=== PATIENT | female | born 1965 | race Caucasian/White ===

== ENCOUNTER 2020-01-26 18:44 | Inpatient (IN) | payer BC, OTHER ==
[~2020-01-26] VITALS: Ht 157.5 cm; Wt 60.0 kg
[2020-01-26 20:49] LABS: Basophils # (auto) 0.1 10 ^3/uL (0-0.2); Basophils % (auto) 1.2 % (0.0-2.0); Eosinophils # (auto) 0.2 10 ^3/uL (0-0.8); Eosinophils % (auto) 3.1 % (0.0-7.0); Hematocrit 43.2 % (36.0-46.0); Hemoglobin 14.3 g/dL (12.2-16.2); Lymphocytes % (auto) 13.6 % (10.0-50.0); Mean Corpuscular Hemoglobin 32.8 pg (28.0-32.0); Mean Corpuscular Hgb Conc. 33.2 g/dL (32.0-36.0); Mean Corpuscular Volume 98.7 fL (80.0-100.0); Monocytes # (auto) 0.6 10 ^3/uL (0-1.3); Monocytes % (auto) 7.9 % (0.0-12.0); Neutrophils # (auto) 5.4 10 ^3/uL (1.6-8.6); Neutrophils % (auto) 74.2 % (37.0-80.0); Platelet Count (auto) 264 10^3/uL (140-450); Red Blood Cells 4.38 10^6/uL (4.0-5.20); Red Cell Distribution Width 13.7 % (11.8-14.3); White Blood Cell 7.2 10^3/uL (4.4-10.8)
[2020-01-26 20:57] LABS: INR 1.03 (0.9-1.15); Partial Thromboplastin Time 27.3 sec (23.0-31.2)
[2020-01-26 21:02] LABS: Alanine Aminotransferase 23 U/L (13-56); Albumin 4.5 g/dL (3.4-5.0); Anion Gap 6 (5-15); Calcium 8.8 mg/dL (8.5-10.1); Carbon Dioxide 26 mmol/L (21-32); Chloride 110 mmol/L (98-107); Glucose 91 mg/dL (74-106); Potassium 3.4 mmol/L (3.5-5.1); Sodium 142 mmol/L (136-145)
[2020-01-26 21:07] LABS: Alkaline Phosphatase 72 U/L (45-117); Aspartate Aminotransferase 18 U/L (15-37); Bilirubin, Total 0.4 mg/dL (0.2-1.0); GFR African American 138 mL/min; GFR Non-African American 114 mL/min
[2020-01-26 21:41] LABS: BUN/Creatinine Ratio 20.7; Blood Urea Nitrogen 12 mg/dL (7-18)
[2020-01-26] MEDS ORDERED: dilTIAZem 25 MG/5 ML VIAL IV ONE (22:30)
[2020-01-26] MEDS ORDERED: dilTIAZem HCL 60 MG TAB PO ONE (23:30)
[2020-01-27] MEDS ORDERED: TEMAZEPAM 15 MG CAP PO PRN (00:30)
[2020-01-27] MEDS ORDERED: NITROGLYCERIN 0.4 MG SL TAB SL PRN (00:30)
[2020-01-27] MEDS ORDERED: ACETAMINOPHEN 325 MG TAB PO PRN (00:30)
[2020-01-27] MEDS ORDERED: MORPHINE SULF INJ 2 MG/ML SYRINGE 1ML IV PRN (00:30)
[2020-01-27] MEDS ORDERED: ONDANSETRON HCL 4 MG/2 ML VIAL IV PRN (00:30)
--- NOTE | 2020-01-27 01:35 | NUR ---
Telemetry admit from ER MALAIKA FORTE admitted to Telemetry unit after SBAR received. Patient oriented to Supriya Cross primary RN, unit, room, bed, and unit policies regarding patient care and visiting hours. Patient now on continuous telemetry monitoring, tele box # [id number] and telemetry reading on arrival to unit is sinus rhythm. Patient weighed by bedscale and encouraged to call if they need something. All questions and concerns addressed, patient verbalized understanding.
[2020-01-27] MEDS ORDERED: LEVO50TA7 PO (02:08)
[2020-01-27 04:51] VITALS: BP 106/58
[2020-01-27] MEDS ORDERED: ALPRAZolam 0.25 MG TAB PO ONE (06:45)
[2020-01-27] MEDS ORDERED: LEVOTHYROXINE SODIUM 25 MCG TAB PO SCH (07:00)
[2020-01-27 08:00] VITALS: BP 112/54
[2020-01-27 09:00] VITALS: BP 112/54
[2020-01-27] MEDS ORDERED: FAMOTIDINE 20 MG TAB PO SCH (10:00)
[2020-01-27] MEDS ORDERED: METOPROLOL TARTRATE 25 MG TAB PO SCH (10:00)
[2020-01-27] MEDS ORDERED: ENOXAPARIN SOD 40 MG/0.4 ML SYRINGE SC SCH (10:00)
[2020-01-27] MEDS ORDERED: POTASSIUM EFFERVESENT TAB 25 MEQ PO ONE (10:45)
[2020-01-27] MEDS ORDERED: ALPRAZolam 0.25 MG TAB PO PRN (11:30)
[2020-01-27 12:33] LABS: Urine Bacteria NONE SEEN /hpf (None Seen); Urine Blood Negative /uL (Negative); Urine Mucus FEW (None Seen); Urine Specific Gravity 1.018 (1.001-1.035); Urine WBC <1 /hpf (0 - 5)
[2020-01-27 13:00] VITALS: BP 122/73
[2020-01-27 17:00] VITALS: BP 119/66
--- NOTE | 2020-01-27 19:20 | NUR ---
Opening Shift Note Received report from Lindsay JENKINS. Assumed care of patient, awake and alert. No S/S of distress/SOB or pain. Instructed on POC and to call for assist PRN, will continue to monitor for changes Q1hr and PRN.
--- NOTE | 2020-01-27 19:42 | NUR ---
AMA Note MALAIKA FORTE states they want to leave the hospital Against Medical Advice (AMA). Patient encouraged to stay for further treatment/stabilization. Marcelo Vargas MD notified of patient's wishes. Patient advised of the risks and benefits of leaving AMA. Patient verbalized understanding. Patient encouraged to return to the ER if symptoms do not improve or worsen.
== END 2020-01-27 19:40 | disposition left against medical advice (07) | DRG 281 ==
LOC: ER 18:44 → TELE 19:45 → TELE-CENTR 01-27 01:35
PROVIDERS: ADMIT Nurse Practitioner; ATTEND Internal Medicine
DX: I21.4 Non-ST elevation (NSTEMI) myocardial infarction (principal); I48.92 Unspecified atrial flutter; I48.91 Unspecified atrial fibrillation; Z53.29 Procedure and treatment not carried out because of patient's decision for other reasons; E03.9 Hypothyroidism, unspecified; E87.6 Hypokalemia; Z82.49 Family history of ischemic heart disease and other diseases of the circulatory system; Z87.74 Personal history of (corrected) congenital malformations of heart and circulatory system
CPT/HCPCS: 36415; 71045; 80053; 81001; 83880; 84443; 84484; 85025; 85379; 85610; 85730; 93005; 93306; 99291; G0378